=== PATIENT | female | born 1950 | race Caucasian/White ===

== ENCOUNTER 2018-03-22 22:31 | Observation (INO) | payer MEDICARE, OTHER ==
--- NOTE | 2018-03-22 22:51 | ED ---
Chest Pain HPI - General Chief Complaint: Chest Pain Stated Complaint: Chest Pain Time Seen by Provider: 03/22/18 22:31 Source: patient, EMS, RN notes reviewed Mode of arrival: EMS Limitations: no limitations - History of Present Illness Initial Comments: This is a 67-year-old female with a history of coronary artery disease status post 2 stents in the past who started having chest pain earlier today he did go to [facility] where she was initially treated nitroglycerin took the pain away. Patient was transferred here for further evaluation. Patient currently is pain-free she has any fevers chills nausea vomiting sweats or other symptoms. MD Complaint: chest pain -: week(s) - Related Data Home Medications Medication Instructions Recorded Confirmed Atorvastatin [Lipitor] 20 mg PO DAILY 03/22/18 03/22/18 Cetirizine HCl [Zyrtec] 10 mg PO DAILY PRN 03/22/18 03/22/18 Furosemide [Lasix] 20 mg PO DAILY 03/22/18 03/22/18 Meclizine HCl 12.5 mg PO TID PRN 03/22/18 03/22/18 Metoprolol Tartrate 25 mg PO BID 03/22/18 03/22/18 Rivaroxaban [Xarelto] 20 mg PO HS 03/22/18 03/22/18 Allergies Allergy/AdvReac Type Severity Reaction Status Date / Time aspirin Allergy Rash/Hives Verified 03/22/18 22:49 ibuprofen [From Motrin] Allergy Rash/Hives Verified 03/22/18 22:49 Review of Systems ROS Statement: Those systems with pertinent positive or pertinent negative responses have been documented in the HPI. ROS Other: All systems not noted in ROS Statement are negative. Past Medical History Past Medical History: Atrial Fibrillation, Osteoarthritis (OA), Pneumonia Additional Past Medical History / Comment(s): Afib diagnosis Jan 2018. UTIs History of Any Multi-Drug Resistant Organisms: None Reported Past Surgical History: Coronary Bypass/CABG, Orthopedic Surgery Additional Past Surgical History / Comment(s): Right shoulder surgery, left wrist surgery. 2 cardiac stents placed Past Psychological History: Anxiety Smoking Status: Former smoker Past Alcohol Use History: None Reported Past Drug Use History: None Reported General Exam - General Exam Comments Initial Comments: This a well-developed well-nourished awake alert oriented 3 female Limitations: no limitations General appearance: alert, in no apparent distress Head exam: Present: atraumatic, normocephalic, normal inspection Eye exam: Present: normal appearance, PERRL, EOMI. Absent: scleral icterus, conjunctival injection, periorbital swelling ENT exam: Present: normal exam, mucous membranes moist Neck exam: Present: normal inspection. Absent: tenderness, meningismus, lymphadenopathy Respiratory exam: Present: normal lung sounds bilaterally. Absent: respiratory distress, wheezes, rales, rhonchi, stridor Cardiovascular Exam: Present: regular rate, normal rhythm, normal heart sounds. Absent: systolic murmur, diastolic murmur, rubs, gallop, clicks GI/Abdominal exam: Present: soft, normal bowel sounds. Absent: distended, tenderness, guarding, rebound, rigid Extremities exam: Present: normal inspection, full ROM, normal capillary refill. Absent: tenderness, pedal edema, joint swelling, calf tenderness Back exam: Present: normal inspection Neurological exam: Present: alert, oriented X3, CN II-XII intact Psychiatric exam: Present: normal affect, normal mood Skin exam: Present: warm, dry, intact, normal color. Absent: rash Course Vital Signs 03/22/18 22:33 Temperature 98.2 F Pulse Rate 69 Respiratory 16 Rate Blood Pressure 126/65 O2 Sat by Pulse 96 Oximetry Chest Pain MDM - MDM I did review the materials presented from [facility] patient pain- free disseminated discuss case with Dr. Sam patient will be admitted with cardiology consultation. The patient is on Xarelto at this time Disposition Clinical Impression: Unstable angina pectoris Disposition: ADMITTED IP TO THIS HOSP Condition: Stable Referrals: Nam Merida MD [Primary Care Provider] - 1-2 days
[2018-03-22] MEDS ORDERED: NITROGLYCERIN SL TABS 0.4 MG TAB SUBLINGUAL PRN (22:56)
[2018-03-22] MEDS ORDERED: LORATADINE 10 MG TAB PO PRN (23:00)
[2018-03-22] MEDS ORDERED: MECLIZINE 12.5 MG TAB PO PRN (23:00)
[2018-03-23 00:02] LABS: Creatine Kinase 66 U/L (30-135)
[2018-03-23 00:15] LABS: Creatine Kinase MB 1.3 ng/mL (0.0-2.4); Troponin I <0.012 ng/mL (0.000-0.034)
[2018-03-23 00:25] LABS: Cholesterol 142 mg/dL (<200); HDL Cholesterol 27 mg/dL (40-60); LDL Cholesterol,Calculated 96 mg/dL (0-99); Triglycerides 96 mg/dL (<150)
[2018-03-23] MEDS: NITROGLYCERIN OINT 1 INCH/GM PACKET TOPICAL SCH ×5 (00:58→23:48)
[2018-03-23 01:48] VITALS: BMI 39.9
[2018-03-23 05:58] LABS: Creatine Kinase 56 U/L (30-135)
[2018-03-23 06:12] LABS: Creatine Kinase MB 1.2 ng/mL (0.0-2.4); Troponin I <0.012 ng/mL (0.000-0.034)
[2018-03-23] MEDS ORDERED: ATORVASTATIN 20 MG TAB PO SCH (09:00)
[2018-03-23] MEDS ORDERED: ASPIRIN 325 MG TAB PO SCH (09:00)
[2018-03-23] MEDS ORDERED: ALPRAZolam 0.5 MG TAB PO PRN (09:49)
[2018-03-23] MEDS ORDERED: NITROGLYCERIN SL TABS 0.4 MG TAB SUBLINGUAL PRN (09:49)
[2018-03-23] MEDS ORDERED: SODIUM CHLORIDE 0.9% 1,000 ML in EMPTY BAG 1 BAG IV ONE (09:49)
[2018-03-23] MEDS ORDERED: ALPRAZolam 0.25 MG TAB PO PRN (09:49)
--- NOTE | 2018-03-23 11:01 | ECHOF ---
Referral Reason:cp MEASUREMENTS -------- HEIGHT: 162.6 cm WEIGHT: 105.2 kg BP: 129/54 RVIDd: 2.7 cm (< 3.3) IVSd: 1.3 cm (0.6 - 1.1) LVIDd: 3.4 cm (3.9 - 5.3) LVPWd: 1.5 cm (0.6 - 1.1) IVSs: 1.7 cm LVIDs: 1.3 cm LVPWs: 2.0 cm Ao Diam: 3.3 cm (2.0 - 3.7) AV Cusp: 2.1 cm (1.5 - 2.6) LA Diam: 3.0 cm (2.7 - 3.8) MV EXCURSION: 14.642 mm (> 18.000) MV EF SLOPE: 110 mm/s (70 - 150) EPSS: 0.3 cm MV E Tashi: 0.97 m/s MV DecT: 207 ms MV A Tashi: 0.77 m/s MV E/A Ratio: 1.26 RAP: 15.00 mmHg RVSP: 27.25 mmHg FINDINGS -------- Sinus rhythm. This was a technically good study. The left ventricular size is normal. There is mild concentric left ventricular hypertrophy. Overa ll left ventricular systolic function is normal with, an EF between 55 - 60 %. The right ventricle is normal in size. The left atrium is normal in size. The right atrial size is normal. The aortic valve is trileaflet, and appears structurally normal. No aortic stenosis or regurgitation. Mild mitral annular calcification present. Mild mitral regurgitation is present. Mild tricuspid regurgitation present. The right ventricular systolic pressure, as measured by Doppl er, is 27.25mmHg. Pulmonic valve appears structurally normal. The aortic root size is normal. The inferior vena cava is mildly dilated. The pericardium is normal. CONCLUSIONS -------- 1. Sinus rhythm. 2. This was a technically good study. 3. The left ventricular size is normal. 4. There is mild concentric left ventricular hypertrophy. 5. Overall left ventricular systolic function is normal with, an EF between 55 - 60 %. 6. The right ventricle is normal in size. 7. The left atrium is normal in size. 8. The right atrial size is normal. 9. The aortic valve is trileaflet, and appears structurally normal. No aortic stenosis or regurgitati on. 10. Mild mitral annular calcification present. 11. Mild mitral regurgitation is present. 12. Mild tricuspid regurgitation present. 13. The right ventricular systolic pressure, as measured by Doppler, is 27.25mmHg. 14. Pulmonic valve appears structurally normal. 15. The aortic root size is normal. 16. The inferior vena cava is mildly dilated. 17. The pericardium is normal. UPPER AND BOTTOM LACER HAND: Celeste Ramirez RDCS
[2018-03-23] MEDS: SODIUM CHLORIDE 0.9% 1,000 ML IV SCH ×2 (11:08→20:56)
[2018-03-23] MEDS: ATORVASTATIN 40 MG TAB PO SCH (11:53)
[2018-03-23] MEDS: PANTOPRAZOLE 40 MG TABLET PO SCH (11:53)
[2018-03-23] MEDS: METOPROLOL TARTRATE 25 MG TAB PO SCH ×2 (11:53→20:55)
[2018-03-23] MEDS: FUROSEMIDE 20 MG TAB PO SCH (11:53)
--- NOTE | 2018-03-23 13:13 | P.HPIM ---
History of Present Illness 67-year-old pleasant female with history of coronary artery disease 2 stents years ago came in from [facility] after a she presented there with chest pain exertional relieved by nitroglycerin and relieved by rest denied any diaphoresis denied any nausea vomiting last for few minutes pressure-like sensation moderate in severity midsternal nonradiating. Patient's EKG did not show any acute ST-T wave changes troponins are negative consider in her typical nature of the chest pain patient was diagnosed with unstable angina patient will undergo cardia catheterization tomorrow. Patient's chest pain is nonpleuritic not associated with food burning sensation. Patient was having cough was getting viral upper respiratory infection area does have asthma not in acute exacerbation apparently was wheezing yesterday not anymore now. Review of Systems REVIEW OF SYSTEMS: CONSTITUTIONAL: No fever, no malaise, no fatigue. HEENT: No recent visual problems or hearing problems. Denied any sore throat. CARDIOVASCULAR: No orthopnea, PND, no palpitations, no syncope. PULMONARY: No shortness of breath, no cough, no hemoptysis. GASTROINTESTINAL: No diarrhea, no nausea, no vomiting, no abdominal pain. Normoactive bowel sounds. NEUROLOGICAL: No headaches, no weakness, no numbness. HEMATOLOGICAL: Denies any bleeding or petechiae. GENITOURINARY: Denies any burning micturition, frequency, or urgency. MUSCULOSKELETAL/RHEUMATOLOGICAL: Denies any joint pain, swelling, or any muscle pain. ENDOCRINE: Denies any polyuria or polydipsia. The rest of the 14-point review of systems is negative. Past Medical History Past Medical History: Atrial Fibrillation, Asthma, Myocardial Infarction ([place]), Osteoarthritis (OA), Pneumonia Additional Past Medical History / Comment(s): Afib diagnosis Jan 2018. UTIs, left hip brusitis, vertigo Last Myocardial Infarction Date:: 2002 History of Any Multi-Drug Resistant Organisms: None Reported Past Surgical History: Heart Catheterization With Stent, Orthopedic Surgery, Tonsillectomy Additional Past Surgical History / Comment(s): Right shoulder surgery, left wrist surgery. 2 cardiac stents placed in 1999 and 2002, wisdom tooth pulled recently - on right side thursday 03/22 Past Anesthesia/Blood Transfusion Reactions: No Reported Reaction Date of Last Stent Placement:: 2002 Past Psychological History: Anxiety Smoking Status: Former smoker Past Alcohol Use History: None Reported Past Drug Use History: None Reported - Past Family History Mother Family Medical History: CVA/TIA, Myocardial Infarction ([place]) Additional Family Medical History / Comment(s): passed in 60's Medications and Allergies Home Medications Medication Instructions Recorded Confirmed Type Atorvastatin [Lipitor] 20 mg PO DAILY 03/22/18 03/22/18 History Cetirizine HCl [Zyrtec] 10 mg PO DAILY PRN 03/22/18 03/22/18 History Furosemide [Lasix] 20 mg PO DAILY 03/22/18 03/22/18 History Meclizine HCl 12.5 mg PO TID PRN 03/22/18 03/22/18 History Metoprolol Tartrate 25 mg PO BID 03/22/18 03/22/18 History Rivaroxaban [Xarelto] 20 mg PO HS 03/22/18 03/22/18 History Allergies Allergy/AdvReac Type Severity Reaction Status Date / Time aspirin Allergy Rash/Hives Verified 03/22/18 22:49 ibuprofen [From Motrin] Allergy Rash/Hives Verified 03/22/18 22:49 Physical Exam Vitals: Vital Signs Temp Pulse Pulse Resp BP BP Pulse Ox 03/23/18 12:00 97.7 F 66 18 123/73 96 03/23/18 08:00 18 03/23/18 07:50 97.7 F 67 18 131/77 95 03/23/18 03:58 18 03/23/18 01:25 97.6 F 80 18 129/54 94 L 03/23/18 00:49 98.1 F 69 16 118/62 96 03/22/18 22:33 98.2 F 69 16 126/65 96 Intake and Output 03/22/18 03/23/18 03/23/18 22:59 06:59 14:59 Intake Total 236 Balance 236 Intake: Oral 236 Other: Voiding Method Toilet Toilet # Voids 2 Weight 105.687 kg 105.6 kg PHYSICAL EXAMINATION: GENERAL: The patient is alert and oriented x3, not in any acute distress. Well developed, well nourished. HEENT: Pupils are round and equally reacting to light. EOMI. No scleral icterus. No conjunctival pallor. Normocephalic, atraumatic. No pharyngeal erythema. No thyromegaly. CARDIOVASCULAR: S1 and S2 present. No murmurs, rubs, or gallops. PULMONARY: Chest is clear to auscultation, no wheezing or crackles. ABDOMEN: Soft, nontender, nondistended, normoactive bowel sounds. No palpable organomegaly. MUSCULOSKELETAL: No joint swelling or deformity. EXTREMITIES: No cyanosis, clubbing, or pedal edema. NEUROLOGICAL: Gross neurological examination did not reveal any focal deficits. SKIN: No rashes. Results Labs: Abnormal Lab Results - Last 24 Hours (Table) 03/22/18 Range/Units 23:10 HDL Cholesterol 27 L (40-60) mg/dL Thrombosis Risk Factor Assmnt - Choose All That Apply Each Factor Represents 1 point: Obesity (BMI >25) Each Risk Factor Represents 2 Points: Age 61-74 years Thrombosis Risk Factor Assessment Total Risk Factor Score: 3 Thrombosis Risk Factor Assessment Level: Moderate Risk Assessment and Plan Plan: -Chest pain patient does have some typical features of chest pain because of which patient will undergo cardiac catheterization tomorrow for unstable angina ruled out acute coronary syndromes with troponins and EKGs. Patient the pain can be related to gastritis patient was started on Protonix -Atrial fibrillation: Presently rate controlled on anticoagulation which will be continued Asthma: Mild intermittent without any acute exacerbation -Coronary artery disease
--- NOTE | 2018-03-23 13:16 | P.CRDCN ---
History of Present Illness History of present illness: This is a pleasant 67-year-old female past medical history significant for coronary artery disease status post angioplasty in 1999 and 2002 , paroxysmal atrial fibrillation on long-term anticoagulation, dyslipidemia, hypertension and asthma. She follows with Dr. Retana in the office. We have been asked to see her in consultation for chest pain. She complains of pain in the midsternal region she first noticed she was sitting down. The pain quickly subsided. However throughout the remainder of the day every time she got up to do any sort of minimal activity such as walking from the kitchen to the recliner or to the restroom are doing mild household activities the pain would come back. It was described as a pressure sensation in the midsternal region associated with a tight sensation that felt as if she could not take a deep breath. Her symptoms would resolve after sitting down for a couple of minutes but will continue to come back every time she got up and tried another activity. She attempted using her nebulizer thinking she was possibly having an asthma exacerbation however this did not resolve her symptoms. Her symptoms have subsided since coming to the hospital. She states the only activity she has done his walk from the bed to the bathroom. EKG on arrival reveals sinus mechanism with no acute ST or T wave abnormalities noted. Chest x-ray obtained to review discharge hospital negative for an acute cardiopulmonary process. Laboratory data reviewed, cardiac enzymes negative 3. Current cardiac medications include Lasix 20 mg daily, metoprolol 25 mg twice a day, atorvastatin 20 mg daily and Xarelto 20 mg daily. At the time of my exam: CONSTITUTIONAL: Denies fever. Denies chills. EYES: Denies blurred vision. Denies vision changes. Denies eye pain. EARS, NOSE, MOUTH & THROAT: Denies headache. Denies sore throat. Denies ear pain. CARDIOVASCULAR: Denies chest pain. Denies shortness of breath. Denies orthopnea. Denies PND. Denies palpitations. RESPIRATORY: Denies cough. GASTROINTESTINAL: Denies abdominal pain. Denies diarrhea. Denies constipation. Denies nausea. Denies vomiting. MUSCULOSKELETAL: Denies myalgias. INTEGUMENTARY: Denies pruitis. Denies rash. NEUROLOGIC: Denies numbness. Denies tingling. Denies weakness. PSYCHIATRIC: Denies anxiety. Denies depression. ENDOCRINE: Denies fatigue. Denies weight change. Denies polydipsia. Denies polyurina. GENITOURINARY: Denies burning, hematuria or urgency with micturation. HEMATOLOGIC: Denies history of anemia. Denies bleeding. Blood pressure 129/54 heart rate 88 afebrile maintaining oxygen saturation on room air GENERAL: This is a 67-year-old female in no apparent distress at the time of my examination. HEENT: Head is atraumatic, normocephalic. Pupils are equal, round. Sclerae anicteric. Conjunctivae are clear. Mucous membranes of the mouth are moist. Neck is supple. There is no jugular venous distention. No carotid bruit is heard. LUNGS: Clear to auscultation no wheezes, rales or rhonchi. No chest wall tenderness is noted on palpation or with deep breathing. HEART: Regular rate and rhythm without murmurs, rubs or gallops. S1 and S2 heard. ABDOMEN: Soft, nontender. Bowel sounds are heard. No organomegaly noted. EXTREMITIES: No evidence of peripheral edema and no calf tenderness noted. VASCULAR: Radial and dorsalis pedis pulses palpated, no evidence of clubbing. NEUROLOGIC: Patient is awake, alert and oriented x3. ASSESSMENT Unstable angina Paroxysmal atrial fibrillation on long-term anticoagulation currently maintaining sinus mechanism History of coronary artery disease status post angioplasty in 1999 and 2002 Dyslipidemia Hypertension Asthma PLAN Symptoms are suggestive of unstable angina we recommend proceeding with cardiac catheterization to further assess coronary arteries. Last doses Xarelto was last night. She should remain nothing by mouth after midnight tonight, hold her evening dose of Xarelto and undergo the procedure tomorrow morning. This has been explained in detail to the patient. I have discussed the risks, benefits and alternative therapies for the above-mentioned procedure and for both sedation/analgesia as well as necessary blood product administration, if indicated, as they pertain to this patient. The patient has indicated understanding and acceptance of the risks and procedures discussed. Questions have been answered appropriately and she is agreeable to move forward with the above stated procedure. LDL cholesterol is 96 and a patient with known history of coronary artery disease optimal should be less than 70. Increase atorvastatin 40 mg daily. Obtain 2-D echocardiogram and Doppler study to assess cardiac structure and function. Further recommendations to follow based upon clinical course. Thank you kindly for this consultation. Nurse Practitioner note has been reviewed, I agree with a documented findings and plan of care. Patient was seen and examined. Past Medical History Past Medical History: Atrial Fibrillation, Asthma, Myocardial Infarction ([place]), Osteoarthritis (OA), Pneumonia Additional Past Medical History / Comment(s): Afib diagnosis Jan 2018. UTIs, left hip brusitis, vertigo Last Myocardial Infarction Date:: 2002 History of Any Multi-Drug Resistant Organisms: None Reported Past Surgical History: Heart Catheterization With Stent, Orthopedic Surgery, Tonsillectomy Additional Past Surgical History / Comment(s): Right shoulder surgery, left wrist surgery. 2 cardiac stents placed in 1999 and 2002, wisdom tooth pulled recently - on right side thursday 03/22 Past Anesthesia/Blood Transfusion Reactions: No Reported Reaction Date of Last Stent Placement:: 2002 Past Psychological History: Anxiety Smoking Status: Former smoker Past Alcohol Use History: None Reported Past Drug Use History: None Reported - Past Family History Mother Family Medical History: CVA/TIA, Myocardial Infarction ([place]) Additional Family Medical History / Comment(s): passed in 60's Medications and Allergies Home Medications Medication Instructions Recorded Confirmed Type Atorvastatin [Lipitor] 20 mg PO DAILY 03/22/18 03/22/18 History Cetirizine HCl [Zyrtec] 10 mg PO DAILY PRN 03/22/18 03/22/18 History Furosemide [Lasix] 20 mg PO DAILY 03/22/18 03/22/18 History Meclizine HCl 12.5 mg PO TID PRN 03/22/18 03/22/18 History Metoprolol Tartrate 25 mg PO BID 03/22/18 03/22/18 History Rivaroxaban [Xarelto] 20 mg PO HS 03/22/18 03/22/18 History Allergies Allergy/AdvReac Type Severity Reaction Status Date / Time aspirin Allergy Rash/Hives Verified 03/22/18 22:49 ibuprofen [From Motrin] Allergy Rash/Hives Verified 03/22/18 22:49 Physical Exam Vitals: Vital Signs Temp Pulse Pulse Resp BP BP Pulse Ox 03/23/18 03:58 18 03/23/18 01:25 97.6 F 80 18 129/54 94 L 03/23/18 00:49 98.1 F 69 16 118/62 96 03/22/18 22:33 98.2 F 69 16 126/65 96 Intake and Output 1103/23/18 03/23/18 22:59 06:59 14:59 Other: Voiding Method Toilet # Voids 2 Weight 105.687 kg 105.6 kg Results Cardiac Enzymes 03/22/18 03/23/18 Range/Units 23:10 05:23 CK-MB (CK-2) 1.3 1.2 (0.0-2.4) ng/mL Troponin I <0.012 <0.012 (0.000-0.034) ng/mL Lipids 03/22/18 Range/Units 23:10 Triglycerides 96 (<150) mg/dL Cholesterol 142 (<200) mg/dL HDL Cholesterol 27 L (40-60) mg/dL Current Medications Generic Name Dose Route Start Last Admin Trade Name Freq PRN Reason Stop Dose Admin Aspirin 325 mg 03/23/18 09:00 Aspirin PO DAILY [facility] Atorvastatin Calcium 20 mg 03/23/18 09:00 Lipitor PO DAILY [facility] Furosemide 20 mg 03/23/18 09:00 Lasix PO DAILY [facility] Sodium Chloride 1,000 mls @ 20 mls/hr 03/22/18 23:00 Saline 0.9% IV .Q24H [facility] Loratadine 10 mg 03/22/18 23:00 Claritin PO DAILY PRN Allergy Symptoms Meclizine HCl 12.5 mg 03/22/18 23:00 Antivert PO TID PRN Vertigo Metoprolol Tartrate 25 mg 03/23/18 09:00 Lopressor PO BID [facility] Nitroglycerin 1 inch 03/23/18 00:00 03/23/18 06:02 Nitro-Bid Oint TOPICAL Not Given Q6HR [facility] Rivaroxaban 20 mg 03/23/18 21:00 Xarelto PO HS [facility] Intake and Output 03/22/18 03/23/18 03/23/18 22:59 06:59 14:59 Other: Voiding Method Toilet # Voids 2 Weight 105.687 kg 105.6 kg
[2018-03-23 13:36] LABS: Creatine Kinase 56 U/L (30-135)
[2018-03-23 13:46] LABS: Troponin I <0.012 ng/mL (0.000-0.034)
[2018-03-23] MEDS ORDERED: RIVAROXABAN 20 MG TAB PO SCH (21:00)
[2018-03-23 21:19] LABS: Appearance,Urine Cloudy (Clear); Bilirubin,Urine Negative (Negative); Blood,Urine Negative (Negative); Calcium Oxalate Crystals,Urine Many /hpf; Color,Urine Yellow; Glucose,Urine (UA) Negative (Negative); Ketones,Urine Negative (Negative); Leukocyte Esterase,Urine Negative (Negative); Mucus,Urine Few /hpf; Nitrite,Urine Negative (Negative); PH, Urine 6.5 (5.0-8.0); Protein,Urine Negative (Negative); RBC,Urine 2 /hpf (0-5); Specific Gravity,Urine 1.018 (1.001-1.035); Squamous Epithelial Cell,Urine 1 /hpf (0-4); Urobilinogen,Urine <2.0 mg/dL (<2.0); WBC,Urine 13 /hpf (0-5)
[2018-03-24 07:40] LABS: HGB 12.6 gm/dL (11.4-16.0); MCH 28.7 pg (25.0-35.0); MCHC 32.3 g/dL (31.0-37.0); MCV 88.9 fL (80.0-100.0); Mean Platelet Volume 7.8; Platelet Count 293 k/uL (150-450); RBC 4.39 m/uL (3.80-5.40); RDW 13.6 % (11.5-15.5); WBC 15.2 k/uL (3.8-10.6)
[2018-03-24 08:01] LABS: Anion Gap 3 mmol/L; Blood Urea Nitrogen 21 mg/dL (7-17); Calcium 8.7 mg/dL (8.4-10.2); Carbon Dioxide 29 mmol/L (22-30); Chloride 108 mmol/L (98-107); Glucose 84 mg/dL (74-99); Potassium 4.2 mmol/L (3.5-5.1); Sodium 140 mmol/L (137-145)
[2018-03-24 08:03] VITALS: RESP 18
[2018-03-24] MEDS: NITROGLYCERIN OINT 1 INCH/GM PACKET TOPICAL SCH (08:03)
[2018-03-24] MEDS: ATORVASTATIN 40 MG TAB PO SCH (08:07)
[2018-03-24] MEDS: PANTOPRAZOLE 40 MG TABLET PO SCH (08:07)
[2018-03-24] MEDS: METOPROLOL TARTRATE 25 MG TAB PO SCH (08:07)
[2018-03-24] MEDS ORDERED: LIDOCAINE 1% INJ 10MG/ML (20 ML MDV) ONE (09:12)
[2018-03-24] MEDS ORDERED: fentaNYL (PF) 50 MCG/ML 2 ML AMP ONE (09:12)
[2018-03-24] MEDS ORDERED: MIDAZOLAM 2 MG/2 ML VIAL ONE (09:12)
[2018-03-24] MEDS ORDERED: IV FLUID CONTINUATION 1,000 ML IV ONE (09:27)
[2018-03-24] MEDS ORDERED: MIDAZOLAM 2 MG/2 ML VIAL IV ONE (09:42)
[2018-03-24] MEDS ORDERED: LIDOCAINE 1% INJ 10MG/ML (20 ML MDV) SQ ONE (09:45)
[2018-03-24] MEDS ORDERED: IOPAMIDOL-370 125ML BTL INJ ONE (09:57)
[2018-03-24] MEDS ORDERED: RX INFO: IV CONTRAST WAS GIVEN 1 EACH MISC MISCELLANE PRN (10:11)
[2018-03-24] MEDS ORDERED: ISOSORBIDE MONONITRATE ER 60 MG TAB.ER.24H PO SCH (10:15)
[2018-03-24 10:35] VITALS: TEMP 97.6
--- NOTE | 2018-03-24 10:47 | CC ---
CARDIAC CATHETERIZATION REPORT INDICATION: Unstable angina. this is a 2 indication unstable angina. PROCEDURE NOTE: After obtaining informed consent, left heart catheterization and coronary angiogram are performed via the right femoral artery using standard Nava catheters. Patient tolerated the procedure well without any obvious immediate complications. A femoral angiogram was performed and Angio-Seal will be deployed for hemostasis. Patient received moderate conscious sedation and total sedation time was 15 minutes. FINDINGS: 1. HEMODYNAMICS: Left ventricular end-diastolic pressure is 20-24 mm. There is no significant gradient across the aortic valve. 2. ANGIOGRAPHIC DATA. LEFT MAIN CORONARY ARTERY: Left main coronary artery is a normal-sized vessel and is free of stenosis. Divides into left anterior descending coronary artery and circumflex coronary artery. LAD was previously stented and the stented segment appears patent. It gives off a small caliber diagonal branches that are free of significant stenosis. Circumflex coronary artery is a large dominant vessel that was previously stented in the proximal part and the stent is patent. Proximal to the stent there is a 40% to 50% stenosis. It gives off a large caliber OM branch that shows stenosis in the ostial portion which seems similar to the right coronary artery as a small nondominant vessel that is chronically occluded in its midportion with [id number] collaterals. CONCLUSION: Patent stent within the LAD and circumflex coronary artery with a lesion in the ostial portion of the OM branch that seems to be jailed within the stent, chronic occlusion of the right coronary artery. PLAN: I reviewed angiographic data with the patient and advised her on optimal medical therapy at this time. If necessary, I will perform a stress test on her to evaluate for ischemia and circumflex coronary artery distribution. MMODL / IJN: [id number] /
[2018-03-24] MEDS: FUROSEMIDE 20 MG TAB PO SCH (11:10)
--- NOTE | 2018-03-24 12:21 | P.DS ---
Providers Date of admission: 03/22/18 22:57 Attending physician: Nicki Sam Consults: 03/22/18 22:57 Consult Physician Urgent Consulting Provider: Ok Retana Consult Reason/Comments: Unstable angina Do you want consulting provider notified?: Yes, Notify in am [facility]: 67-year-old pleasant female with history of coronary artery disease 2 stents years ago came in from [facility] after a she presented there with chest pain exertional relieved by nitroglycerin and relieved by rest denied any diaphoresis denied any nausea vomiting last for few minutes pressure-like sensation moderate in severity midsternal nonradiating. Patient's EKG did not show any acute ST-T wave changes troponins are negative consider in her typical nature of the chest pain patient was diagnosed with unstable angina patient will undergo cardia catheterization tomorrow. Patient's chest pain is nonpleuritic not associated with food burning sensation. Patient was having cough was getting viral upper respiratory infection area does have asthma not in acute exacerbation apparently was wheezing yesterday not anymore now. 03/24/2018 Patient underwent cardiac catheterization there is no significant stent table stenosis although he she does have atherosclerotic vascular disease in the coronaries because of which patient was started on Imdur and will be discharged today. Patient will be discharged on Prilosec empirically for 14 days because of the possibility of gastroesophageal reflux disease contributing to the symptoms. Next PHYSICAL EXAMINATION: GENERAL: The patient is alert and oriented x3, not in any acute distress. Well developed, well nourished. HEENT: Pupils are round and equally reacting to light. EOMI. No scleral icterus. No conjunctival pallor. Normocephalic, atraumatic. No pharyngeal erythema. No thyromegaly. CARDIOVASCULAR: S1 and S2 present. No murmurs, rubs, or gallops. PULMONARY: Chest is clear to auscultation, no wheezing or crackles. ABDOMEN: Soft, nontender, nondistended, normoactive bowel sounds. No palpable organomegaly. MUSCULOSKELETAL: No joint swelling or deformity. EXTREMITIES: No cyanosis, clubbing, or pedal edema. NEUROLOGICAL: Gross neurological examination did not reveal any focal deficits. SKIN: No rashes. Next For rest of the chronic medical problems hospitalization course please refer to my HPI from yesterday Patient Condition at Discharge: Stable Plan - Discharge Summary New Discharge Prescriptions: New Isosorbide Mononitrate ER [Imdur] 60 mg PO DAILY #90 tab.er.24h Omeprazole [PriLOSEC] 40 mg PO AC-BRKFST #14 capsule. No Action Meclizine HCl 12.5 mg PO TID PRN PRN Reason: Vertigo Atorvastatin [Lipitor] 20 mg PO DAILY Rivaroxaban [Xarelto] 20 mg PO HS Metoprolol Tartrate 25 mg PO BID Furosemide [Lasix] 20 mg PO DAILY Cetirizine HCl [Zyrtec] 10 mg PO DAILY PRN PRN Reason: Allergy Symptoms Discharge Medication List Atorvastatin [Lipitor] 20 mg PO DAILY 03/22/18 [History] Cetirizine HCl [Zyrtec] 10 mg PO DAILY PRN 03/22/18 [History] Furosemide [Lasix] 20 mg PO DAILY 03/22/18 [History] Meclizine HCl 12.5 mg PO TID PRN 03/22/18 [History] Metoprolol Tartrate 25 mg PO BID 03/22/18 [History] Rivaroxaban [Xarelto] 20 mg PO HS 03/22/18 [History] Isosorbide Mononitrate ER [Imdur] 60 mg PO DAILY #90 tab.er.24h 03/24/18 [Rx] Omeprazole [PriLOSEC] 40 mg PO MICKI-BRKFST #14 capsule. 03/24/18 [Rx] Follow up Appointment(s)/Referral(s): Nam Merida MD [Primary Care Provider] - 3 Days Ok Retana MD [STAFF PHYSICIAN] - 1 Week Discharge Disposition: HOME SELF-CARE
[2018-03-24 15:42] VITALS: BP 120/58; PULSE 75
[2018-03-24] MEDS ORDERED: RIVAROXABAN 20 MG TAB PO SCH (21:00)
== END 2018-03-24 16:15 | disposition home or self-care (01) ==
LOC: EC 22:31 → 1SOBS 22:57
PROVIDERS: ADMIT Internal Medicine; ATTEND Internal Medicine
DX: I25.110 Atherosclerotic heart disease of native coronary artery with unstable angina pectoris (principal); I48.0 Paroxysmal atrial fibrillation; J45.20 Mild intermittent asthma, uncomplicated; E78.5 Hyperlipidemia, unspecified; F41.9 Anxiety disorder, unspecified; I10 Essential (primary) hypertension; Z95.5 Presence of coronary angioplasty implant and graft; I25.2 Old myocardial infarction; Z79.899 Other long term (current) drug therapy; Z79.01 Long term (current) use of anticoagulants; Z82.49 Family history of ischemic heart disease and other diseases of the circulatory system
CPT/HCPCS: 99285; 36415; 93005; 93306; 93458; 80061; 80048; 82550 ×2; 82553 ×2; 84484 ×2; 85027; 81001; 87086; 87077; 87186; G0378 ×3; C1760; C1894; C1769; J2250; J2001; Q9967

== ENCOUNTER → 2021-12-15 | Outpatient (CLI) | payer MEDICARE ==
[2021-12-15 15:31] LABS: African American GFR (CKD) >90 (>60 ml/min/1.73 sqM); Blood Urea Nitrogen 16 mg/dL (7-17); Non-African American GFR(CKD) 90 (>60 ml/min/1.73 sqM)
--- NOTE | 2021-12-15 20:46 | CT ---
EXAMINATION TYPE: CT chest w con CT DLP: 496.3 mGycm, Automated exposure control for dose reduction was used. DATE OF EXAM: 12/15/2021 4:41 PM COMPARISON: Chest radiograph from 12/04/2021. CLINICAL INDICATION:Female, 71 years old with history of R91.8, previous abnormal exam TECHNIQUE: Multiple axial images were obtained through the chest. Sagittal and coronal reformats were created for review. Contrast used:100ml mL of Isovue 300 with IV Contrast, none. Oral contrast used: none. FINDINGS: LUNGS/ PLEURA: No evidence of focal consolidation, and pneumothorax or pleural effusion. AIRWAY: Patent and unremarkable. HEART: The heart is mildly enlarged for size. There is moderate coronary artery atherosclerosis MEDIASTINUM: No gross evidence of adenopathy. VASCULATURE: No aortic aneurysm. No evidence for pulmonary embolism. MUSCULOSKELETAL: No acute osseous abnormalities, mild multilevel disc degeneration changes throughout the spine. SOFT TISSUES/LYMPH NODES: Unremarkable. LOWER NECK: No significant findings. UPPER ABDOMEN: Diffuse low-attenuation to the liver parenchyma. Indeterminate left adrenal nodule me asuring 1.5 cm and 57 Hounsfield units. IMPRESSION: 1. No evidence for acute process. 2. Indeterminate left adrenal nodule measuring 5 cm. Further evaluation with MRI or CT adrenal mass protocol could provide further characterization. 3. Hepatic steatosis 4. Mild cardiomegaly. 5. Moderate coronary artery atherosclerosis.
== END | disposition home or self-care (01) ==
LOC: RADCTMAIN 14:49
PROVIDERS: ATTEND Internal Medicine Critical Care Medicine
DX: R91.8 Other nonspecific abnormal finding of lung field (principal); I25.10 Atherosclerotic heart disease of native coronary artery without angina pectoris; K76.0 Fatty (change of) liver, not elsewhere classified; I51.7 Cardiomegaly
CPT/HCPCS: 82565; 84520; 71260; 36415; Q9967

== ENCOUNTER 2023-12-29 10:40 | Observation (INO) | payer MEDICARE ==
[2023-12-29] MEDS ORDERED: METOPROLOL TARTRATE 25 MG TAB ONE (20:59)
[2023-12-29] MEDS ORDERED: RIVAROXABAN 20 MG TAB PO ONE (21:00)
[2023-12-30] MEDS ORDERED: ASPIRIN 81 MG ONE (11:48)
[2023-12-30] MEDS ORDERED: FAMOTIDINE 20 MG TAB ONE (11:49)
[2023-12-30] MEDS ORDERED: METOPROLOL TARTRATE 25 MG TAB ONE (11:49)
[2023-12-30] MEDS ORDERED: FUROSEMIDE 20 MG TAB ONE (11:50)
[2023-12-30] MEDS ORDERED: ISOSORBIDE MONONITRATE ER 30 MG TAB.ER.24H PO ONE (11:51)
--- NOTE | 2024-02-02 08:10 | XR ---
Patient Denise Torre ID [id number] Order # EXAMINATION TYPE: XR chest 2V DATE OF EXAM: 12/29/2023 COMPARISON: No comparison on downtime PACS INDICATION: Chest pain TECHNIQUE: Frontal and lateral views of the chest are obtained. FINDINGS: The heart size is upper limits of normal. The pulmonary vasculature is normal. The lungs are clear. IMPRESSION: 1. No acute pulmonary process.
== END 2023-12-30 14:50 | disposition home or self-care (01) ==
LOC: 6NMEDSUR 10:40 → INTOOBSV 10:40 → 6NMEDSUR 23:32 → UNDOADMIN 23:32 → UNDODISIN 12-30 14:51
PROVIDERS: ADMIT Internal Medicine; ATTEND Internal Medicine
DX: R07.89 Other chest pain (principal); D72.829 Elevated white blood cell count, unspecified; I10 Essential (primary) hypertension; I25.10 Atherosclerotic heart disease of native coronary artery without angina pectoris; I48.0 Paroxysmal atrial fibrillation; E66.9 Obesity, unspecified; Z79.01 Long term (current) use of anticoagulants; Z79.82 Long term (current) use of aspirin; Z79.899 Other long term (current) drug therapy
CPT/HCPCS: 71046; 93005; 99285